=== PATIENT | male | born 1990 | race Caucasian/White ===

== ENCOUNTER 2023-07-03 14:17 | Emergency (ER) | payer SELFPAY ==
[2023-07-03 14:18] VITALS: BP 151/103; PULSE 89; RESP 16; TEMP 36.7; O2SAT 100; BMI 28.1
--- NOTE | 2023-07-03 14:20 | RAD_ITS ---
STUDY: X-RAY - RIGHT FOOT CLINICAL: Male, 32 years old. Rt foot/ankle injury TECHNIQUE: 3 view(s) of the foot. COMPARISON: None. FINDINGS: Normal talus, calcaneus, and tarsal bones. Normal visualized subtalar, talonavicular, calcaneocuboid, tarsal and tarsometatarsal articulations. Normal metatarsi. Normal metatarsophalangeal joint of the great toe. Normal tibial and fibular sesamoid bones. Normal interphalangeal joint of the great toe. Normal phalanges of the great toe. Normal second through fifth metatarsophalangeal joints. Normal interphalangeal joints and phalanges of the lesser toes. The soft tissue structures are unremarkable. RAD/Foot min 3 Views IMPRESSION: Normal x-ray examination of the foot. Electronically Signed: Romie Lin MD at 14:39 EDT ,
--- NOTE | 2023-07-03 14:24 | RAD_ITS ---
STUDY: X-RAY - RIGHT ANKLE REASON FOR EXAM: Male, 32 years old. Rt ankle/foot injury/fall TECHNIQUE: 3 view(s) of the ankle. COMPARISON: None. FINDINGS: Normal visualized distal tibia and fibula. Normal medial and lateral malleoli. Normal tibiotalar articulation and ankle mortise. Normal visualized talus and calcaneus. The visualized subtalar, talonavicular, calcaneocuboid and tarsal articulations are normal. The soft tissue structures are unremarkable. RAD/Ankle min 3 Views IMPRESSION: Normal x-ray examination of the ankle. Electronically Signed: Romie Lin MD at 14:40 EDT ,
--- NOTE | 2023-07-03 15:45 | EX.ED.DYSGE1 ---
HPI History of Present Illness Chief Complaint: Lower Extremity Injury Informant: patient Narrative Narrative: Patient presents with right foot/ankle pain. Patient states this morning he stepped down off a step and rolled his right ankle. His foot rolled in. He has been trying to work today but it is very sore when he bears weight. It is all on the lateral aspect of the right foot/ankle. No other injury. He never hit his head. Weightbearing makes it worse and rest makes it better. PFSH PFSH Home Medications naproxen 500 mg tablet 500 mg PO BID #14 tabs 07/03/23 [Rx Last Taken Unknown] Allergy/AdvReac Type Severity Reaction Status Date / Time shellfish derived Allergy Severe Anaphylaxis Verified 07/03/23 14:18 amoxicillin Allergy Mild PT UNSURE Verified 07/03/23 14:18 OF REACTION cefixime [From Suprax] Allergy Mild PT UNSURE Verified 07/03/23 14:18 OF REACTION Social History Smoking Status: Never smoker ROS ROS ED Constitutional Constitutional ED: Denies chills or fever(s) Cardiovascular Cardiovascular: Denies chest pain Respiratory/Chest Respiratory/Chest: Denies cough Gastrointestinal Gastrointestinal: Denies nausea or vomiting Musculoskeletal Musculoskeletal: Reports arthralgias and other Details: He states he does have a little bit of soreness in the back of his right thigh with bearing weight but he did not hit the area. He thinks he just pulled a muscle. There is no swelling. ; Denies back pain or neck pain Integumentary Denies Abrasions or rash Neurologic Neurologic: Denies paresthesias Hematologic/Lymphatic Hematologic/Lymphatic: Denies easy bleeding or easy bruising EXAM Physical Exam Narrative Exam Narrative: Patient is awake alert sitting comfortably in the bed. No acute distress. HEENT shows no trauma Cardiorespiratory shows easy unlabored breathing and saturations are normal at 100% on room air showing no hypoxia. Extremities show no deformity. There is really no tenderness up in the thigh even the backside. But it is just sore when he bears weight. But his range of motion of the knee is normal. There is no tenderness around the knee and no tenderness of the proximal fibula. There is no effusion. Extensor mechanism is intact. Ankle shows really no tenderness but the anterior talofibular ligament on the right is a little tender. He has a little bit of tenderness and swelling in that area and near the proximal fourth and fifth metatarsal. Achilles is intact by palpation and Pagan test. There is no calcaneus tenderness. The area around the lateral foot and ankle does have a little early swelling Const Vital Signs: 07/03/23 14:18 Temperature 98.1 F Temperature Source Temporal Pulse Rate 89 Respiratory Rate 16 Blood Pressure 151/103 H Blood Pressure Mean 119 Pulse Ox 100 Oxygen Delivery Method Room Air MDM MDM MDM Narrative Medical decision making narrative: My independent interpretation the patient's three-view x-ray of his right ankle shows no acute fracture or dislocation. Final reading is similar. My independent her potation the patient's three-view x-ray of the right foot shows no sign of fracture. Fifth metatarsal looks good. No sign of Lisfranc's injury. Patient's comfortable with going home. I will write for some nonsteroidals. We discussed rest ice elevation. He is off this weekend so we can let this rest a bit. We also discussed repeat x-rays if he still having symptoms in 10 to 14 days. Radiography Diagnostic Testing: Clinical Impression(s) from Imaging Studies Foot X-Ray 07/03/23 14:20 IMPRESSION: Normal x-ray examination of the foot. Electronically Signed: Romie Lin MD at 14:39 EDT , Ankle X-Ray 07/03/23 14:24 IMPRESSION: Normal x-ray examination of the ankle. Electronically Signed: Romie Lin MD at 14:40 EDT , Discharge Plan Triage Chief Complaint: Lower Extremity Injury ED Provider: Joe Coyle Dx/Rx/DC Orders Clinical Impression: Inversion sprain of right ankle, Fall from slip, trip, or stumble, Strain of right foot Instructions: ED Sprain Ankle W X Ray Prescriptions: New naproxen 500 mg tablet 500 mg PO BID Qty: 14 0RF Primary Care Provider: Kevin Jaffe Referrals: Kevin Jaffe, DO [Primary Care Provider] - 10-14 Days if not better Disposition Disposition: Home, Self Care
== END 2023-07-03 16:00 | disposition home or self-care (01) ==
LOC: ED 16:07
PROVIDERS: Emergency Provider Emergency Medicine; PCP Family Medicine; Visit Provider Emergency Medicine
DX: S93.401A Sprain of unspecified ligament of right ankle, initial encounter (principal); W10.9XXA Fall (on) (from) unspecified stairs and steps, initial encounter
CPT/HCPCS: 73610; 73630; 99282

== ENCOUNTER 2024-02-20 23:13 | Emergency (ER) | payer BC, SELFPAY ==
[2024-02-20 23:14] VITALS: BP 146/90; PULSE 71; RESP 15; TEMP 36.3; O2SAT 96; BMI 30.2
--- NOTE | 2024-02-20 23:23 | EX.ED.DYSGE1 ---
HPI History of Present Illness Chief Complaint: Allergic Reaction PFSH PFS Home Medications naproxen 500 mg tablet 500 mg PO BID #14 tabs 07/03/23 [Rx Last Taken Unknown] Allergy/AdvReac Type Severity Reaction Status Date / Time shellfish derived Allergy Severe Anaphylaxis Verified 02/20/24 23:16 amoxicillin Allergy Mild PT UNSURE Verified 02/20/24 23:16 OF REACTION cefixime [From Suprax] Allergy Mild PT UNSURE Verified 02/20/24 23:16 OF REACTION Social History Smoking Status: Never smoker EXAM Physical Exam Const Vital Signs: 02/20/24 23:14 Temperature 97.4 F L Temperature Source Temporal Pulse Rate 71 Respiratory Rate 15 Blood Pressure 146/90 H Blood Pressure Mean 108 Pulse Ox 96 Oxygen Delivery Method Room Air MDM MDM MDM Narrative Medical decision making narrative: HISTORY OF PRESENT ILLNESS: 33-year-old male presents with concern for allergic skin reaction. Notes intermittent symptoms for the greater part of the year most recently over last month that worsened today. Notes a lesion on his left ankle for which he is taking doxycycline for day 3 of 7. States this lesion gets worse when he is at work in hot boots. He states today he found redness and burning on his fingers that radiated up both arms. States symptoms have since calm down. He denies any trouble breathing, drooling, vomiting, shortness of breath, abdominal pain. Denies new detergents, travel any other recent exposures REVIEW OF SYSTEMS: Pertinent positives: Rash Pertinent negatives: Drooling, difficulty swallowing, throat closure, hives PHYSICAL EXAM: Nursing triage notes reviewed, Vital signs reviewed Constitutional: please see mdm HENT: MMM Eyes: Pupils equal round and reactive to light, Extraocular muscles intact Neck: No stridor, no JVD, full neck ROM Lungs: Clear to auscultation, No wheezing or rales. No increased work of breathing, no conversational dyspnea, no accessory muscle use, no nasal flaring. No respiratory distress noted Heart: Regular rate and rhythm, No murmurs, No rubs and No gallops, 2+ distal pulses (radial, femoral, posterior tibial) in all extremities Abdomen: Soft, there is no tenderness, rigidity, rebound or guarding, no obvious peritoneal signs, no palpable pulsatile abdominal masses, no auscultated abdominal bruit : No CVAT Extremities: No edema Neuro: No focal neurological deficits, cranial nerves II through XII intact, 5/5 strength in all extremities. Intact sensation to light touch in all extremities, 2+ reflexes bilateral patella tendons. Normal gait. No ataxia. Skin: No rash or lesions noted MEDICAL DECISION MAKING: Chief Complaint: Allergy External records reviewed: No recent inpatient visits, recent encounters for allergic reactions Factors affecting care: shellfish, amoxicillin, cefixime allergies reviewed: Allergic to MDM Narrative: Patient was hemodynamically stable, afebrile and nontoxic-appearing I considered the following differential diagnosis: Cellulitis, nighttime fasciitis, anaphylaxis, anaphylactic shock, allergic reaction, psoriasis or other autoimmune skin disease Patient's clinical exam and history not consistent with any life-threatening allergic reaction, anaphylaxis or anaphylactic shock. He has a nonspecific maculopapular eruption noted over his bilateral fingers. There is a plaque over left medial ankle. Lesion does not appear infected it is not warm. Is not draining. It appears to be psoriatic in nature. I am concerned patient may have a autoimmune process. He is currently on antibiotics which she states helps so rather than add additional medicine in the form of steroids I instructed patient continue his course of doxycycline and follow-up with dermatology for definitive diagnosis. I did offer symptomatic treatment as informed antihistamines and had him continue this at home. I gave strict return precautions and follow-up instructions The patient and/or family, caregivers express understanding. The patient and/or family, caregivers agrees with the plan. Shared decision making: I will have a discussion with the patient and or visitors regarding risk/benefits of further testing or admission. They will be made aware of of the risk/benefits inherent in this decision they will be given the opportunity to voice understanding. Total critical care time today provided was at least 0 [] minutes. This excludes separately billable procedures. Critical care time (if documented) is secondary to the patient having high probability of clinically significant/life threatening deterioration in the patient's condition which required my urgent intervention. Impression: 1. Nonspecific skin eruption 2. Left ankle plaque Dispo: Discharge home This note was generated with [employer] dictation software. It may contain incorrect words, spelling, and punctuation that were not noted in review of the chart prior to signing. Discharge Plan Triage Chief Complaint: Allergic Reaction ED Provider: Michael,Leroy Dx/Rx/DC Orders Instructions: ED Allergic Reaction Local Other Prescriptions: No Action naproxen 500 mg tablet 500 mg PO BID Qty: 14 0RF Stand Alone Forms: ED Work / School Excuse Primary Care Provider: Care Physician,No Primary Referrals: Toña De La Fuente MD [Non-Staff] - Activity Restrictions/Additional Instructions: Thank you for trusting us with your care today! Please take Tylenol (2 pills, 650 mg), ibuprofen (2 pills, 400 mg) every 6 hours as needed for pain and fever control. Please take Benadryl and/or Zyrtec as well as Pepcid for symptomatic relief. These medicines can be obtained [id number]. Please continue take already prescribed antibiotics Please return to the emergency department if your symptoms change or worsen. Specifically develop trouble breathing, difficulty swallowing, drooling. Please follow with dermatology (Dr. De La Fuente) For further outpatient evaluation and management. Disposition Disposition: Home, Self Care
[2024-02-21] MEDS: Famotidine 20 MG Tablet PO (00:02)
[2024-02-21] MEDS: DiphenhydrAMINE 25 MG Capsule PO (00:02)
== END 2024-02-21 00:07 | disposition home or self-care (01) ==
PROVIDERS: Emergency Provider Emergency Medicine; Visit Provider Emergency Medicine
DX: R21 Rash and other nonspecific skin eruption (principal); L98.9 Disorder of the skin and subcutaneous tissue, unspecified
CPT/HCPCS: 99283